=== PATIENT | female | born 1980 | race African-American/Black ===

== ENCOUNTER 2020-07-16 13:04 | Emergency (ER) | payer MEDICAID ==
[~2020-07-16] VITALS: Ht 160 cm; Wt 95.7 kg
[2020-07-16] MEDS ORDERED: HYDROCODONE/ACETAMINOPHEN 5/325MG TABLET PO ONE (13:30)
[2020-07-16] MEDS ORDERED: CLONIDINE 0.2MG TABLET PO NR (15:30)
[2020-07-16 16:43] VITALS: BP 156/90
== END 2020-07-16 16:52 | disposition home or self-care (01) ==
LOC: ER 13:04
DX: S52.501A Unspecified fracture of the lower end of right radius, initial encounter for closed fracture (principal); I10 Essential (primary) hypertension; V89.2XXA Person injured in unspecified motor-vehicle accident, traffic, initial encounter; Y93.89 Activity, other specified; Y92.89 Other specified places as the place of occurrence of the external cause; Y99.8 Other external cause status
CPT/HCPCS: 29125; 73110; 99283; A4565